=== PATIENT | female | born 1950 | race Caucasian/White ===

== ENCOUNTER 2018-08-01 08:04 | Day surgery (SDC) | payer MEDICARE, OTHER ==
[~2018-08-01] VITALS: Ht 160 cm; Wt 112.5 kg
[2018-08-01] MEDS ORDERED: PRINIVIL20 MG PO (08:21)
[2018-08-01] MEDS ORDERED: LASIX 20MG TABL20 MG PO (08:22)
[2018-08-01] MEDS ORDERED: K-DUR20 MEQ PO (08:22)
[2018-08-01] MEDS ORDERED: ELIQUIS 5MG PO (08:22)
[2018-08-01] MEDS ORDERED: LIPITOR 40MG TA40 MG PO (08:23)
[2018-08-01] MEDS ORDERED: LOPRESSOR 225 MG/TAB PO (08:23)
[2018-08-01 08:24] VITALS: BP 150/72; PULSE 86; TEMP 98.2
[2018-08-01] MEDS ORDERED: ZANTAC 150MG T150 MG PO (10:35)
[2018-08-01 10:50] VITALS: BP 137/77; PULSE 80; TEMP 98.7
[2018-08-01 11:05] VITALS: BP 137/69; PULSE 84
[2018-08-01 11:20] VITALS: BP 135/90; PULSE 87
== END 2018-08-01 11:30 | disposition home or self-care (01) ==
LOC: SDCO 08:04
DX: K29.30 Chronic superficial gastritis without bleeding (principal); K64.0 First degree hemorrhoids; K29.80 Duodenitis without bleeding; K92.1 Melena; D64.9 Anemia, unspecified; I48.91 Unspecified atrial fibrillation; I34.0 Nonrheumatic mitral (valve) insufficiency; F41.9 Anxiety disorder, unspecified; Z86.73 Personal history of transient ischemic attack (TIA), and cerebral infarction without residual deficits; Z79.01 Long term (current) use of anticoagulants; Z79.82 Long term (current) use of aspirin
CPT/HCPCS: J2704; J3010; J7030

== ENCOUNTER → 2018-09-19 | Outpatient (CLI) | payer MEDICARE, OTHER ==
[~2018-09-19] MED LIST: ELIQUIS 5MG PO; K-DUR20 MEQ PO; LASIX 20MG TABL20 MG PO; LIPITOR 40MG TA40 MG PO; LOPRESSOR 225 MG/TAB PO; PRINIVIL20 MG PO; ZANTAC 150MG T150 MG PO
== END ==
LOC: MC.RAD 10:40
DX: Z12.31 Encounter for screening mammogram for malignant neoplasm of breast (principal)

== ENCOUNTER 2019-05-17 17:25 | Inpatient (IN) | payer MEDICARE, OTHER ==
[~2019-05-17] VITALS: Ht 160 cm; Wt 104.4 kg
[2019-05-17 17:54] LABS: BASO % 0.4 % (0.0-2.0); EOS % 0.1 % (0-4.0); GRAN # 6.2 (1.4-6.5); GRAN % 80.7 % (42.2-75.2); LYMPH # 0.5 (1.2-3.4); LYMPH % 6.9 % (20.0-51.0); MEAN CELL VOLUME 92 fl (80.0-100.0); MEAN CORPUSCULAR HGB CONC 28 g/dl (33.0-37.0); MEAN PLATELET VOLUME 10.4 fl (7.4-10.4); MONO # 0.9 (0.1-0.6); MONO % 11.4 % (1.7-9.3); PLATELET COUNT 272 K/mm3 (130-400); RED BLOOD COUNT 1.61 M/mm3 (4.10-5.30); REDCELL DISTRIBUTION WIDTH-CV 18.3 % (11.5-14.5)
[2019-05-17 18:01] LABS: MEAN CORPUSCULAR HEMOGLOBIN 26 pg (27.0-31.0)
[2019-05-17 18:02] LABS: HEMATOCRIT 14.8 % (37.0-47.0); HEMOGLOBIN 4.2 g/dl (12.5-16.0)
[2019-05-17 18:18] LABS: PARTIAL THROMBOPLASTIN TIME 77.5 SECONDS (26.0-37.0)
[2019-05-17] MEDS ORDERED: NORVASC2.5 MG PO (18:20)
[2019-05-17] MEDS ORDERED: NEXIUM 40MG40 MG PO (18:21)
[2019-05-17] MEDS ORDERED: COUMADIN 3MG3 MG/TAB PO (18:22)
[2019-05-17 18:25] LABS: ALANINE AMINOTRANSFERASE 18 U/L (9-52); ALBUMIN 3.4 gm/dL (3.5-5.0); ALKALINE PHOSPHATASE 75 U/L (50-136); ANION GAP 13 mmol/L (7-16); AST,SGOT 32 U/L (15-37); BILIRUBIN,TOTAL 0.9 mg/dL (0.0-1.0); BLOOD UREA NITROGEN 56 mg/dL (7-17); CALCIUM 8.8 mg/dL (8.4-10.2); CARBON DIOXIDE 19 mmol/L (22-30); CHLORIDE 105 mmol/L (98-107); CREATININE, serum 1.88 (0.52-1.25); GLUCOSE 110 mg/dL (74-106); POTASSIUM 5.1 mmol/L (3.4-5.0); SODIUM 137 mmol/L (137-145); TOTAL PROTEIN 6.1 gm/dL (6.4-8.2)
[2019-05-17 18:34] LABS: C-REACTIVE PROTEIN 0.5 mg/dL (0.0-0.9); TROPONIN-I < 0.012 ng/mL (0.000-0.035)
[2019-05-17 18:36] LABS: INR 16.4 (0.8-3.0)
[2019-05-17 18:37] LABS: PROTHROMBIN TIME 209.4 SECONDS (9.7-12.8)
[2019-05-17 19:26] VITALS: BP 98/52; PULSE 77; TEMP 97.6
[2019-05-17 19:41] VITALS: BP 90/60; PULSE 82; TEMP 97.6
[2019-05-17 20:16] VITALS: BP 105/56; PULSE 79; TEMP 97.8
[2019-05-17 21:15] VITALS: BP 113/74; PULSE 73; TEMP 97.6
[2019-05-17 23:28] VITALS: BP 104/46; PULSE 82; TEMP 98.7
[2019-05-17 23:47] VITALS: BP 102/40; PULSE 73; TEMP 98.1
[2019-05-18] VITALS (25 sets, daily range): BP systolic 92–135; BP diastolic 43–96; PULSE 67–99; TEMP 97.5–98.7
[2019-05-18 00:54] LABS: COLLECTION METHOD CLEAN CATCH
[2019-05-18 01:03] LABS: HYALINE CAST >12 /lpf; MUCOUS Present /lpf; PH 5 (5-8); SQUAMOUS EPITHELIAL 0-2 /hpf; URINE APPEARANCE Clear; URINE BACTERIA Rare /hpf; URINE BILIRUBIN Negative (NEGATIVE); URINE BLOOD 1+ (NEGATIVE); URINE COLOR Straw; URINE GLUCOSE Negative (NEGATIVE); URINE KETONE Negative (NEGATIVE); URINE LEUKOCYTE ESTERASE Trace (NEGATIVE); URINE NITRATE Negative (NEGATIVE); URINE PROTEIN(semi-quant) Negative (NEGATIVE); URINE RBC 0-2 /hpf; URINE UROBILINOGEN Negative (NEGATIVE)
[2019-05-18 02:39] LABS: HEMATOCRIT 18.5 % (37.0-47.0)
[2019-05-18 02:41] LABS: HEMOGLOBIN 5.7 g/dl (12.5-16.0)
--- NOTE | 2019-05-18 07:30 | NUR ---
Report received from LEVY Charles.
--- NOTE | 2019-05-18 08:00 | NUR ---
Assessment completed. Pt up in chair. PRBC still transfusing through left FA PIV. Pt c/o bilat leg pain, unable to describe, nagging pain. Pt states leg pain is chronic. SBP 90-100s, HR Afib 70-80s on monitor. Discussed plan of care with pt r/t EGD/colonscopy for today and bowel prep. Pt verbalized understanding. Pt up to bedside commode with stand by assist. BM brown and watery. Pt back to chair. Call light in reach.
--- NOTE | 2019-05-18 08:50 | NUR ---
Paged Anesthesia and received call back. Notified of EGD and colonoscopy at [address] Howard and anesthesia is requested.
[2019-05-18 08:52] LABS: CALCIUM 8.5 mg/dL (8.4-10.2); CREATININE, serum 1.65 (0.52-1.25); POTASSIUM 4.8 mmol/L (3.4-5.0)
[2019-05-18 08:53] LABS: PARTIAL THROMBOPLASTIN TIME 39.9 SECONDS (26.0-37.0)
--- NOTE | 2019-05-18 09:10 | NUR ---
PRBC completed. Post vitals taken. Lab notified of CBC for 1000. Consent signed by pt for EGD and colonoscopy with DR Howard. Consent in chart.
[2019-05-18 10:20] LABS: BASO % 0.4 % (0.0-2.0); EOS # 0.1 (0.0-0.7); EOS % 1.5 % (0-4.0); GRAN # 5.3 (1.4-6.5); GRAN % 77.4 % (42.2-75.2); LYMPH # 0.7 (1.2-3.4); LYMPH % 10.8 % (20.0-51.0); MEAN CORPUSCULAR HGB CONC 32 g/dl (33.0-37.0); MEAN PLATELET VOLUME 10.2 fl (7.4-10.4); MONO # 0.7 (0.1-0.6); MONO % 9.6 % (1.7-9.3); PLATELET COUNT 174 K/mm3 (130-400); RED BLOOD COUNT 2.93 M/mm3 (4.10-5.30)
[2019-05-18 10:23] LABS: HEMATOCRIT 25.6 % (37.0-47.0); HEMOGLOBIN 8.2 g/dl (12.5-16.0); MEAN CELL VOLUME 87 fl (80.0-100.0); MEAN CORPUSCULAR HEMOGLOBIN 28 pg (27.0-31.0)
[2019-05-18 10:28] LABS: CALCIUM 8.5 mg/dL (8.4-10.2); CREATININE, serum 1.61 (0.52-1.25); POTASSIUM 4.7 mmol/L (3.4-5.0)
--- NOTE | 2019-05-18 11:00 | NUR ---
LEVY Grady in Endoscopy called to steel pickler pt. Pt's stools still brown/watery. Dr Howard updated and ordered fleet enema for pt.
--- NOTE | 2019-05-18 12:06 | NUR ---
First visit from the crop and soil technician. No needs right now.
--- NOTE | 2019-05-18 12:50 | NUR ---
Yenny RN in Endoscopy called and updated on pt status. Pt's stools yellow, watery. FFP transfusing at this time. SBP 90-100s. Plan to pharmacy picking tech pt around 1400.
--- NOTE | 2019-05-18 13:38 | NUR ---
SW attended clinical rounds to discuss discharge planning. Patient lives independently at home alone. Patient's son, Drake, and daughter in law, Mechelle, live close by. Patient's PCP is Geri Fox NP from the [facility] in [place] and she obtains prescriptions from the pharmacy at the [facility]. Patient does not use any DME or home health services and is independent with all ADLs. Patient does not have a DPOA-HC but would like to complete one. EJ and Nishi FLETCHER, witnessed patient signature for DPOA-HC. Patient designated her son and daughter in law. SW provided original and extra copies. SW also placed a copy in patient's chart. Patient plans to return home upon discharge. EJ will follow as needed.
--- NOTE | 2019-05-18 14:26 | NUR ---
LEVY Coon from endoscopy at bedside. Updated on pt status. Pt left unit for EGD/ colonoscopy via bed and on CRM.
--- NOTE | 2019-05-18 15:50 | NUR ---
Report received from Shaggy paper cone grader at 1534. Pt arrived to ICU bed 3 from EGD/colonoscopy. Pt resting in bed, easily arousable. Pt connected to CRM, SBP 90-100s. HR Afib 90s. VSS. Will monitor.
[2019-05-18 16:20] LABS: HEMATOCRIT 26.6 % (37.0-47.0); HEMOGLOBIN 8.5 g/dl (12.5-16.0)
--- NOTE | 2019-05-18 19:39 | NUR ---
report given to Alvin Puente.
[2019-05-18 20:03] LABS: HEMOGLOBIN 8.5 g/dl (12.5-16.0)
[2019-05-19] VITALS: BP 110/59; PULSE 86; TEMP 97.8
[2019-05-19 00:45] LABS: HEMATOCRIT 26.1 % (37.0-47.0); HEMOGLOBIN 8.2 g/dl (12.5-16.0)
[2019-05-19 03:57] LABS: BASO % 0.4 % (0.0-2.0); EOS # 0.1 (0.0-0.7); EOS % 1.4 % (0-4.0); GRAN # 6.7 (1.4-6.5); GRAN % 77.7 % (42.2-75.2); LYMPH # 0.7 (1.2-3.4); LYMPH % 8.1 % (20.0-51.0); MEAN CELL VOLUME 90 fl (80.0-100.0); MEAN CORPUSCULAR HGB CONC 31 g/dl (33.0-37.0); MEAN PLATELET VOLUME 9.7 fl (7.4-10.4); MONO % 11.9 % (1.7-9.3); PLATELET COUNT 169 K/mm3 (130-400); RED BLOOD COUNT 2.94 M/mm3 (4.10-5.30); REDCELL DISTRIBUTION WIDTH-CV 16.7 % (11.5-14.5)
[2019-05-19 04:02] LABS: HEMATOCRIT 26.3 % (37.0-47.0); HEMOGLOBIN 8.2 g/dl (12.5-16.0); MEAN CORPUSCULAR HEMOGLOBIN 28 pg (27.0-31.0)
[2019-05-19 04:06] LABS: INR 1.3 (0.8-3.0)
[2019-05-19 04:08] LABS: CALCIUM 8.6 mg/dL (8.4-10.2); CREATININE, serum 1.27 (0.52-1.25); POTASSIUM 4.8 mmol/L (3.4-5.0)
[2019-05-19 04:25] VITALS: BP 105/74; PULSE 85; TEMP 97.8
--- NOTE | 2019-05-19 07:53 | NUR ---
gave report to kate jefferson.
[2019-05-19 08:00] VITALS: BP 106/79; PULSE 87; TEMP 97.5
--- NOTE | 2019-05-19 08:00 | NUR ---
Shift assessment complete at this time. Plan of care reviewed at bedside with patient. Additional time taken to address any other needs or concerns. Vitals stable at this time. Pt denies pain or any other discomfort. Bed in low position, call light within reach. Will continue to monitor.
--- NOTE | 2019-05-19 11:19 | NUR ---
Family was present, patient was very tired so I only stayed for a minute.
[2019-05-19 12:00] VITALS: BP 95/67; PULSE 84; TEMP 98.1
--- NOTE | 2019-05-19 12:00 | NUR ---
Pt resting comfortably in chair. Vitals stable at this time. Denies pain or any other discomfort. Bed in low position, call light within reach. Will continue to monitor.
--- NOTE | 2019-05-19 16:00 | NUR ---
PT ADMITTED TO FLOOR AT THIS TIME
[2019-05-19 16:31] VITALS: BP 114/92; PULSE 75; TEMP 98.1
[2019-05-19 19:49] VITALS: BP 83/47; PULSE 55; TEMP 98
--- NOTE | 2019-05-19 20:12 | NUR ---
pt resting in chair, A+Ox4. reports she sleeps in chair. pt able to reposistion self in chair. no pain. 2-3+ edmea in bilat legs- legs elevated. iv flushes well, no tenderness, no swelling x2. left forarm iv is red, but not painful. tele on- shows afib. ex wheezing noted x4. pt reports soa but reports this is her bl lately. no needs at this tiem. call light in keenan
[2019-05-20] VITALS (7 sets, daily range): BP systolic 95–124; BP diastolic 50–87; PULSE 66–97; TEMP 97.6–98.4
--- NOTE | 2019-05-20 05:12 | NUR ---
pt had an unevenful night. slept in chair during night. reports soa. vss. no pain. tele on and reads afib-rate controlled. 2-3+ edema noted in bilateral legs. bilat pedal pulses and readial pulses felt. gait is stable- standby. no needs at this tiem. call light in reach
--- NOTE | 2019-05-20 06:45 | NUR ---
report given to kate benton
[2019-05-20 08:45] LABS: BASO % 0.3 % (0.0-2.0); EOS # 0.1 (0.0-0.7); EOS % 2.1 % (0-4.0); GRAN # 4.5 (1.4-6.5); GRAN % 72.4 % (42.2-75.2); LYMPH # 0.7 (1.2-3.4); LYMPH % 11.9 % (20.0-51.0); MEAN CELL VOLUME 93 fl (80.0-100.0); MEAN CORPUSCULAR HGB CONC 29 g/dl (33.0-37.0); MEAN PLATELET VOLUME 10.8 fl (7.4-10.4); MONO # 0.8 (0.1-0.6); PLATELET COUNT 172 K/mm3 (130-400); RED BLOOD COUNT 2.87 M/mm3 (4.10-5.30)
[2019-05-20 09:01] LABS: CALCIUM 8.9 mg/dL (8.4-10.2); CREATININE, serum 1.18 (0.52-1.25); POTASSIUM 4.3 mmol/L (3.4-5.0)
[2019-05-20 09:16] LABS: HEMATOCRIT 26.7 % (37.0-47.0); HEMOGLOBIN 7.8 g/dl (12.5-16.0); MEAN CORPUSCULAR HEMOGLOBIN 27 pg (27.0-31.0)
--- NOTE | 2019-05-20 09:30 | NUR ---
PT UP TO TAKE A SHOWER AT THIS TIME. PT WAS OFF O2 BRIEFLY, REAPPLIED O2 UPON FINISHING SHOWER, PT HAD AUDIBLE WHEEZING NOTED. THIS NURSE CALLED RT AND RT CAME UP TO SEE PATIENT AT THIS TIME. FAMILY TOLD RT THAT THE PT HAD ALOT OF INHAILERS THAT SHE USES AT HOME. NO PRN ORDERS NOTED. RT TOLD FAMILY THEY COULD BRING IN THE INHAILER FOR PT TO USE HERE.
[2019-05-20] MEDS ORDERED: RT SPIRIVA18 MCG IH (15:36)
--- NOTE | 2019-05-20 19:27 | NUR ---
PT WALKED IN MICHEL WITH PT THIS AFTERNOON, DID WELL. PT STATED THAT SHE HAD TO STOP AND TAKE SOME BREATHERS BUT OTHERWISE DID WELL. FAMILY HAS BEEN IN AND OUT TODAY TO VISIT PT. NO C/O PAIN THIS SHIFT. PT INHAILER RESTARTED THIS SHIFT FOR RT TO GIVE. NO OTHER ISSUES OR CONSERNS VOICED.
--- NOTE | 2019-05-20 20:00 | NUR ---
Shift assessment complete. Pt resting in bedside recliner, awake, a&o, cooperative c cares. Pt denies pain or any other c/o at this time. INT x2 patent. Tele in place. Pt denies needs. Call light in reach, will monitor.
[2019-05-21 03:13] VITALS: BP 118/56; PULSE 82; TEMP 97.4
[2019-05-21 06:09] LABS: BASO % 0.5 % (0.0-2.0); EOS # 0.2 (0.0-0.7); EOS % 3.5 % (0-4.0); GRAN # 4.6 (1.4-6.5); GRAN % 70.1 % (42.2-75.2); LYMPH # 0.7 (1.2-3.4); LYMPH % 11.2 % (20.0-51.0); MEAN CELL VOLUME 95 fl (80.0-100.0); MEAN CORPUSCULAR HGB CONC 29 g/dl (33.0-37.0); MEAN PLATELET VOLUME 10.1 fl (7.4-10.4); MONO # 0.9 (0.1-0.6); MONO % 14.2 % (1.7-9.3); PLATELET COUNT 163 K/mm3 (130-400); RED BLOOD COUNT 2.81 M/mm3 (4.10-5.30); REDCELL DISTRIBUTION WIDTH-CV 16.9 % (11.5-14.5)
[2019-05-21 06:10] LABS: HEMATOCRIT 26.7 % (37.0-47.0); HEMOGLOBIN 7.8 g/dl (12.5-16.0); MEAN CORPUSCULAR HEMOGLOBIN 28 pg (27.0-31.0)
[2019-05-21 06:21] LABS: ALBUMIN 3.2 gm/dL (3.5-5.0); BILIRUBIN,TOTAL 1.2 mg/dL (0.0-1.0); CALCIUM 8.8 mg/dL (8.4-10.2); CREATININE, serum 1.13 (0.52-1.25); MAGNESIUM 1.7 mg/dL (1.6-2.3); PHOSPHOROUS 3.3 mg/dL (2.5-4.5); POTASSIUM 4.7 mmol/L (3.4-5.0); TOTAL PROTEIN 5.9 gm/dL (6.4-8.2)
--- NOTE | 2019-05-21 07:15 | NUR ---
Report received from LEVY Daigle. pTin chair at side of bed resting with eyes closed, will continue to monitor.
[2019-05-21 08:07] VITALS: BP 113/69; PULSE 69; TEMP 98.1
--- NOTE | 2019-05-21 08:50 | NUR ---
Assessement charted. Pt feeling well, deneis needs, 02 sat was 100%, trying to titrate off 02. INTs to LW and L A/C. Pt waiting for breakfast. Denies pain. BLE +2 edema, discussed need to elevate legs when swollen. Pt anticipating discharge today. will contineu to monitor.
--- NOTE | 2019-05-21 09:30 | NUR ---
SW attended clinical rounds. Patient will discharge home today. SW presented IM. Patient signed and did not want a copy.
--- NOTE | 2019-05-21 10:57 | NUR ---
Initial visit; Patient thanked Station Engineer Main Line for looking in on her and offering Spiritual Care.
[2019-05-21 11:50] VITALS: BP 115/70; PULSE 91; TEMP 97.9
--- NOTE | 2019-05-21 12:52 | NUR ---
Went over discharge paperwork with the patient. Verified that all her belongings were with her. IVs removed tip in tact, patient tolerated well, bandaids applied, and nursing staff assisted the patient outside by wheelchair. No further needs expressed at this time.
== END 2019-05-21 12:50 | disposition home or self-care (01) | DRG 377 ==
LOC: COL.ER 17:25 → ICU 19:01 → MEDICAL 05-19 15:57
PROVIDERS: Emergency Medicine; Family Medicine; Internal Medicine Gastroenterology; Internal Medicine Pulmonary Disease; Nurse Practitioner Family; ADMIT Internal Medicine
PROC: 0DJ08ZZ Inspection of Upper Intestinal Tract, Via Natural or Artificial Opening Endoscopic (ICD-10-PCS; principal; 2019-05-18 13:00)
DX: K26.4 Chronic or unspecified duodenal ulcer with hemorrhage (principal); J96.01 Acute respiratory failure with hypoxia; D62 Acute posthemorrhagic anemia; I50.32 Chronic diastolic (congestive) heart failure; Z68.41 Body mass index [BMI] 40.0-44.9, adult; N17.9 Acute kidney failure, unspecified; K64.1 Second degree hemorrhoids; I10 Essential (primary) hypertension; I95.9 Hypotension, unspecified; E78.5 Hyperlipidemia, unspecified; I48.2 Chronic atrial fibrillation; E66.9 Obesity, unspecified; I27.20 Pulmonary hypertension, unspecified; I11.0 Hypertensive heart disease with heart failure; E87.5 Hyperkalemia; K21.9 Gastro-esophageal reflux disease without esophagitis; Z79.01 Long term (current) use of anticoagulants; Z86.73 Personal history of transient ischemic attack (TIA), and cerebral infarction without residual deficits; Z87.891 Personal history of nicotine dependence; Z95.2 Presence of prosthetic heart valve
CPT/HCPCS: 99222-AI; 99233-AI; 99239; C9113; J1940; J2704; J3430; J7030; P9016

== ENCOUNTER 2019-08-17 07:21 | Day surgery (SDC) | payer MEDICARE, OTHER ==
[2019-08-17] VITALS (10 sets, daily range): BP systolic 122–148; BP diastolic 53–76; PULSE 78–86; TEMP 98
[~2019-08-17] VITALS: Ht 160 cm; Wt 99.0 kg
[~2019-08-17 07:21] MED LIST changes: +COUMADIN 3MG3 MG/TAB PO; +NEXIUM 40MG40 MG PO; +NORVASC2.5 MG PO; +RT SPIRIVA18 MCG IH
[2019-08-17 08:16] LABS: INR 1.1 (0.8-3.0); PROTHROMBIN TIME 12.5 SECONDS (9.7-12.8)
[2019-08-17 08:18] LABS: MEAN CELL VOLUME 85 fl (80.0-100.0); MEAN CORPUSCULAR HGB CONC 29 g/dl (33.0-37.0); MEAN PLATELET VOLUME 9.8 fl (7.4-10.4); PLATELET COUNT 339 K/mm3 (130-400); RED BLOOD COUNT 3.49 M/mm3 (4.10-5.30); REDCELL DISTRIBUTION WIDTH-CV 17.7 % (11.5-14.5)
[2019-08-17] MEDS ORDERED: NORVASC2.5 MG PO (08:18)
[2019-08-17 08:19] LABS: HEMATOCRIT 29.5 % (37.0-47.0); HEMOGLOBIN 8.4 g/dl (12.5-16.0); MEAN CORPUSCULAR HEMOGLOBIN 24 pg (27.0-31.0)
[2019-08-17 08:20] LABS: CALCIUM 9.3 mg/dL (8.4-10.2); CREATININE, serum 1.23 (0.52-1.25); POTASSIUM 3.8 mmol/L (3.4-5.0)
[2019-08-17] MEDS ORDERED: PROAIR HFA0.09 MG/AC IH (08:30)
--- NOTE | 2019-08-17 09:38 | NUR ---
SEE MERGE REPORT FOR MEDICATION ADMINISTRATION WELL INTRA/POST SEDATION ASSESSMENTS.
[2019-08-17] MEDS ORDERED: LASIX 40MG TABL40 MG PO (10:31)
--- NOTE | 2019-08-17 10:40 | NUR ---
Pt returned to EU 11 per bed s/p heart cath. Pt resting well in bed, family at bedside.
--- NOTE | 2019-08-17 10:46 | NUR ---
Pt transported to express unit room 11 via stretcher. Right groin site stable. Dressing clean, dry and intact. Bedside report to Yeny LOCKETT. Pulses checked at bedside and remain unchange from pre procedure. RDP=Dop, RPT=+1. Pt denies pain or discomfort. Pt connected to bedside vital signs monitor as well as ECG. Post op instructions reviewed with patient and family who verbalized understanding. Dr. Cross in room to review results with patient and family.
--- NOTE | 2019-08-17 13:15 | NUR ---
Pt has ambulated, voided and dae PO intake s n/v. PIV removed with catheter intact.
--- NOTE | 2019-08-17 13:50 | NUR ---
Pt discharged per w/c by nurse with son.
== END 2019-08-17 13:57 | disposition home or self-care (01) ==
LOC: COL.CAR 07:21
PROVIDERS: Internal Medicine Cardiovascular Disease
DX: I25.10 Atherosclerotic heart disease of native coronary artery without angina pectoris (principal); E78.5 Hyperlipidemia, unspecified; E11.9 Type 2 diabetes mellitus without complications; E66.9 Obesity, unspecified; I05.2 Rheumatic mitral stenosis with insufficiency; I11.0 Hypertensive heart disease with heart failure; I50.22 Chronic systolic (congestive) heart failure; I27.20 Pulmonary hypertension, unspecified
CPT/HCPCS: J1644; J2250; J3010; Q9967

== ENCOUNTER 2020-10-17 07:59 | Outpatient (CLI) | payer MEDICARE ==
[~2020-10-17] VITALS: Ht 160.1 cm; Wt 105.0 kg
[~2020-10-17 07:59] MED LIST changes: +LASIX 40MG TABL40 MG PO; +PROAIR HFA0.09 MG/AC IH
[2020-10-17 08:29] VITALS: BP 133/73; PULSE 90; TEMP 98.5
[2020-10-17] MEDS ORDERED: ALDACTONE 25MG25 M1 PO (08:42)
[2020-10-17] MEDS ORDERED: FERROUS SU325 MG/TAB PO (08:58)
[2020-10-17 09:00] LABS: HEMATOCRIT 39.2 % (37.0-47.0); HEMOGLOBIN 12.7 g/dl (12.5-16.0); MEAN CELL VOLUME 94 fl (80.0-100.0); MEAN CORPUSCULAR HEMOGLOBIN 30 pg (27.0-31.0); MEAN CORPUSCULAR HGB CONC 32 g/dl (33.0-37.0); MEAN PLATELET VOLUME 10.1 fl (7.4-10.4); PLATELET COUNT 222 K/mm3 (130-400); RED BLOOD COUNT 4.18 M/mm3 (4.10-5.30); REDCELL DISTRIBUTION WIDTH-CV 13.8 % (11.5-14.5)
[2020-10-17 09:09] LABS: INR 1.1 (0.8-3.0); PROTHROMBIN TIME 11.9 SECONDS (9.7-12.8)
[2020-10-17 09:13] LABS: CALCIUM 9.6 mg/dL (8.4-10.2); CREATININE, serum 1.28 (0.52-1.25); POTASSIUM 4.2 mmol/L (3.4-5.0)
[2020-10-17 11:45] VITALS: BP 117/60; PULSE 75
--- NOTE | 2020-10-17 11:45 | NUR ---
RECIEVED REPORT FROM NAYELI LOCKETT, PT IS AWAKE AND ALERT, SITS UP IN BED, BEEN UP TO B/R X1 TO VOID. TAKES POP AND PUDDING. NO C/O
[2020-10-17 12:00] VITALS: BP 114/78; PULSE 71
[2020-10-17 12:15] VITALS: BP 120/70; PULSE 70
--- NOTE | 2020-10-17 12:15 | NUR ---
DR LUND INTO SEE PT AND TALK ABOUT RESULTS. PT WILL MAKE 2 WEEK FOLLOWUP AT OFFICE ON TUESDAY, INFORMATION GIVEN. IV D'CD INTACT. PT UP AND DRESSED, REVIEWED DISCHARGE INST. WITH PT ON MODERATE SEDATION AND PRECAUTIONS WITH VERBAL UNDERSTANDING. PT DISCHARGED VIA W/C TO CAR WITH SON AT 6204
== END 2020-10-17 12:35 | disposition home or self-care (01) ==
LOC: COL.RAD 07:59
PROVIDERS: Internal Medicine Cardiovascular Disease
DX: I50.30 Unspecified diastolic (congestive) heart failure (principal); I35.0 Nonrheumatic aortic (valve) stenosis; I44.4 Left anterior fascicular block; I45.10 Unspecified right bundle-branch block
CPT/HCPCS: J2704

== ENCOUNTER → 2021-08-04 | Outpatient (CLI) | payer MEDICARE ==
[~2021-08-04] MED LIST changes: +ALDACTONE 25MG25 M1 PO; +FERROUS SU325 MG/TAB PO
== END ==
LOC: COL.RAD 13:01
DX: Z12.2 Encounter for screening for malignant neoplasm of respiratory organs (principal); Z87.891 Personal history of nicotine dependence

== ENCOUNTER 2023-01-21 18:13 | Inpatient (IN) | payer MEDICARE ==
[2023-01-21] VITALS (82 sets, daily range): BP systolic 90–101; BP diastolic 51–89; O2SAT 87–100
[~2023-01-21] VITALS: Ht 160 cm; Wt 95.9 kg
[2023-01-21 19:11] LABS: MEAN CELL VOLUME 87 fl (80.0-100.0); MEAN CORPUSCULAR HGB CONC 33 g/dl (33.0-37.0); MEAN PLATELET VOLUME 11.6 fl (7.4-10.4); PLATELET COUNT 179 K/mm3 (130-400); RED BLOOD COUNT 3.11 M/mm3 (4.10-5.30); REDCELL DISTRIBUTION WIDTH-CV 15.7 % (11.5-14.5)
[2023-01-21 19:15] LABS: HEMATOCRIT 27.1 % (37.0-47.0); MEAN CORPUSCULAR HEMOGLOBIN 29 pg (27-31)
[2023-01-21 19:17] LABS: INR 1.4 (0.8-3.0); PROTHROMBIN TIME 15.8 SECONDS (9.7-12.8)
[2023-01-21 19:23] LABS: ALBUMIN 2.6 gm/dL (3.4-4.8); BILIRUBIN,TOTAL 6.9 mg/dL (0.2-1.2); CALCIUM 8.5 mg/dL (8.4-10.2); CREATININE, serum 2.88 mg/dL (0.57-1.11); POTASSIUM 4.8 mmol/L (3.5-4.5); TOTAL PROTEIN 6.6 gm/dL (6.2-8.1)
[2023-01-21 19:30] LABS: TROPONIN-I 0.035 ng/mL (0.00-0.033)
[2023-01-21 20:00] LABS: BAND 8 % (0-10); NEUTROPHILS 90 % (42.0-75.2); PLATELET ESTIMATE NORMAL (NORMAL)
[2023-01-21 20:02] LABS: BURR CELLS 2+
[2023-01-21 20:03] LABS: OVALOCYTES 1+
--- NOTE | 2023-01-21 22:20 | NUR ---
Patient arrived to the unit from the emergency department. Patient arrived on Levophed at 0.16mcg/kg/min and NS at 500ml/hr. Patient had noticeable edema on bilateral lower extremities. Patient has multiple wounds on lower extremities (view ranjeet assessment for measurements and descriptions) that are weeping and producing odor. Patient asked this RN to use the bedpan shortly after arrival, patient had a small, liquid bowel movement. Stool sample was collected and sent down to lab for a hemoccult and GI panel. Upon this RN's assessment patient had excoriation and multiple small sloughing wounds on the coccyx region. Patient has a large skin fold that appeared reddened, irritated, and moist. A barrier skin moisture cloth was placed to prevent further irritation. ERAN Cuevas consulted for irving placement, rectal tube placement, and possible central line placement. ERAN Cuevas agreed that a irving catheter and rectal tube were appropriate due to amyt's skin irritation and open wounds. ERAN Cuevas recommended using the patients peripheral line for the night and reassess need for a central line in the morning. Irving catheter and rectal tube placed with patient's permission, patient tolerated well. Patient is resting comfortably in bed with call light in reach.
[2023-01-22] VITALS (1227 sets, daily range): BP systolic 75–109; BP diastolic 32–84; PULSE 57–84; TEMP 93–98.1; O2SAT 85–100
[2023-01-22 05:44] LABS: MEAN CELL VOLUME 85 fl (80.0-100.0); MEAN CORPUSCULAR HGB CONC 34 g/dl (33.0-37.0); MEAN PLATELET VOLUME 11.5 fl (7.4-10.4); PLATELET COUNT 151 K/mm3 (130-400); RED BLOOD COUNT 2.82 M/mm3 (4.10-5.30); REDCELL DISTRIBUTION WIDTH-CV 15.8 % (11.5-14.5)
[2023-01-22 05:55] LABS: ALBUMIN 2.3 gm/dL (3.4-4.8); BILIRUBIN,TOTAL 6.1 mg/dL (0.2-1.2); CALCIUM 7.6 mg/dL (8.4-10.2); CREATININE, serum 2.58 mg/dL (0.57-1.11); MAGNESIUM 2.4 mg/dL (1.6-2.6); POTASSIUM 4.5 mmol/L (3.5-4.5); TOTAL PROTEIN 5.7 gm/dL (6.2-8.1)
[2023-01-22 05:57] LABS: HEMOGLOBIN 8.2 g/dl (12.5-16.0); MEAN CORPUSCULAR HEMOGLOBIN 29 pg (27-31)
[2023-01-22 06:58] LABS: BAND 16 % (0-10); LYMPHOCYTE 1 % (20.0-51.0); NEUTROPHILS 81 % (42.0-75.2); PLATELET ESTIMATE NORMAL (NORMAL)
[2023-01-22 06:59] LABS: ANISOCYTOSIS 1+; BURR CELLS 2+; HYPOCHROMIA 1+
--- NOTE | 2023-01-22 08:15 | NUR ---
Patient is drowsy, but alert and able to answer orientation questions and follow simple commands. Skin assessed; Bilateral legs swollen and bruised with weeping open blister laterally along the left leg and anteriorly along the right leg. Left lateral leg also has black and yellow eschar tissue present in lower portion of the wound bed. Upper portion of the wound has a red bloody wound bed. Assisted with repositioning and legs elevated on pillows for comfort. Call light left within reach.
--- NOTE | 2023-01-22 11:30 | NUR ---
Dr. dorantes notified about patient's hypothermia. Sandeep on a eric hugger. Will continue to monitor for increase in body temperature.
--- NOTE | 2023-01-22 11:36 | NUR ---
Chaplalin rounds: Patient was resting in bed. Prosthodontist/Owner visit offered and declined. Patient stated Prosthodontist/Owner could possibly visit later.
--- NOTE | 2023-01-22 12:21 | NUR ---
Arson And Bomb Investigator met with PAtient at bedside to conduct Care Managment Assessment and discuss discharge planning. PAtient reported that she lives in [place], [place] by herself and is established with PCP MICHELLE Lozano. PAtient preferres perscription services through [employer] abd has insurance coverage through [facility] [employer]. EJ spoke with PAtient Son, Neil P: [phone] and his Mechelle, both listed as DPOA in chart. Neil reported that PAtient did not use O2 or DME prior to admission and utilized the use of a walker prior to admission. Neil stated that Patient was independent with her ADLs/IADLs until the past 7 days when she declined, resulting in her admission. Discharge Plan: TBD
[2023-01-22 14:15] LABS: COLLECTION METHOD CATHETER
[2023-01-22 14:30] LABS: AMORPHOUS CRYSTAL Present (NOT PRESENT); GRANULAR CAST >12 /lpf (0); MUCOUS Present (NOT PRESENT); SQUAMOUS EPITHELIAL 0-2 /hpf (0-10); URINE BACTERIA Moderate /hpf (NONE SEEN); URINE CALCIUM OXALATE CRYSTAL Present (NOT PRESENT)
[2023-01-22 14:31] LABS: URINE APPEARANCE Cloudy (CLEAR/HAZY); URINE COLOR Yellow (YELLOW); URINE GLUCOSE Negative (NEGATIVE); URINE KETONE Negative (NEGATIVE); URINE PROTEIN(semi-quant) 2+ (NEGATIVE)
[2023-01-22 14:32] LABS: URINE BLOOD 1+ (NEGATIVE); URINE NITRATE Negative (NEGATIVE)
[2023-01-22 18:52] LABS: SODIUM 130 mmol/L (136-145)
--- NOTE | 2023-01-22 20:00 | NUR ---
PT'S TEMP UP TO 98.1 AXILARY. BAIRHUGGER REMOVED AT THIS TIME. WILL CONTINUE TO MONITOR. PT WITH EYES OPEN, ABLE TO SAY NAME. WIGGLES FINGERS WHEN ASKED BUT HAS NO STRENGTH TO SYSTEM CONTROLLER HANDS. PT ANSWERS YES/NO QUESTIONS WITH WEAK SPEECH, BUT OTHERWISE NOT COMMUNICATING/FULLY ANSWERING ORIENTATION QUESTIONS. GENERALLY SEEMS TO BE RESTING COMFORTABLY IN BED. REPOSITIONED TO OPPOSITE SIDE AT THIS TIME. BLE ELEVATED ON PILLOWS AND HEEL PROTECTORS IN PLACE. LARGE BLISTERS/WOUNDS TO BLE. WILL CONTINUE TO MONITOR.
[2023-01-23] VITALS (1124 sets, daily range): BP systolic 92–102; BP diastolic 44–58; PULSE 72–84; TEMP 94.6–97.7; O2SAT 83–100
[2023-01-23 05:24] LABS: MEAN CELL VOLUME 87 fl (80.0-100.0); MEAN CORPUSCULAR HGB CONC 33 g/dl (33.0-37.0); MEAN PLATELET VOLUME 11.8 fl (7.4-10.4); PLATELET COUNT 155 K/mm3 (130-400); RED BLOOD COUNT 2.89 M/mm3 (4.10-5.30); REDCELL DISTRIBUTION WIDTH-CV 16.2 % (11.5-14.5)
[2023-01-23 05:27] LABS: HEMOGLOBIN 8.3 g/dl (12.5-16.0); MEAN CORPUSCULAR HEMOGLOBIN 29 pg (27-31)
[2023-01-23 05:42] LABS: CALCIUM 7.7 mg/dL (8.4-10.2); CREATININE, serum 2.7 mg/dL (0.57-1.11); POTASSIUM 4.6 mmol/L (3.5-4.5)
[2023-01-23 06:06] LABS: ANISOCYTOSIS 1+; BAND 12 % (0-10); HYPOCHROMIA 1+; LYMPHOCYTE 4 % (20.0-51.0); NEUTROPHILS 82 % (42.0-75.2); PLATELET ESTIMATE NORMAL (NORMAL)
[2023-01-23 06:07] LABS: BURR CELLS 1+
--- NOTE | 2023-01-23 10:21 | NUR ---
Project Inspector rounds: Attempted follow-up visit from yesterday. Although Patient's eyes are open, Patient was unresponsive. No dental appliance mechanic visit conducted. Project Inspector prayed silently for Patient.
--- NOTE | 2023-01-23 11:59 | NUR ---
Follow-up Chemical Engineering Professor visit: Patient's son Neil is visiting today. Appreciates prayers for his Mother.
--- NOTE | 2023-01-23 16:35 | NUR ---
PT HAS BECOME HYPOTHERMIC. BEAR HUGGER APPLIED. PT TEMPERATURE SLOWING RISING.
--- NOTE | 2023-01-23 20:05 | NUR ---
Patient assessment completed. Patient is alert and was able to mumble where she was. Patient continues to moan/groan. Patient is able to follow simple commands i.e - squeezing RN's hand and wiggling toes. Patient's bilateral lower extremities assessed. This RN noticed significant changes from admission assessment to current. Left Lower Extremity- Foot appears reddened, skin is tight, patient moans and grimaces to light palpitation. Extremity is weeping a significant amount of yellow, serous fluid. Tissue that was previously red/beefy is now thick,yellow, sloughing. New areas of wound have opened and appear dark, brownish/black necrotic tissue. Right Lower Extremity- Wounds previously not open are now open dry, dark red. New blister formed on the right foot, tight skin, and edematous. ERAN Cuevas notified about RN's assessment. ERAN Cuevas arrived to the unit to assess patient. Faith agreed the extremity has rapidly deteriorated. Provider and RN noticed that the surgical consult was not notified, ERAN Cuevas recommended to call consult in the morning. Patient given morphine for pain management and remains on levophed and fluids.
[2023-01-24] VITALS (1160 sets, daily range): BP systolic 84–115; BP diastolic 41–58; PULSE 77–87; TEMP 96.8–97.9; O2SAT 72–100
--- NOTE | 2023-01-24 04:40 | NUR ---
Patient began requiring increased blood pressure support and mentation further declining. Patient is now requiring oxygen support and began having labored breathing. ERAN Cuevas consulted due to change in patients status. ERAN Cuevas consulted [facility] for a second opinion. New orders for an ABG. Upon waiting for results of ABG, patient began increased work of breathing to where ERAN Cuevas decided intubation was the best option for patient. from ED was consulted to perform the intubation. 0507- This RN IV pushed Etomidate and Succinylcholine. 0508- Patient successfully intubated. Patient placed on suction and tolerated procedure well. Patient remains on levophed and is currently stable.
[2023-01-24 04:58] LABS: ARTERIAL BLD GAS O2 SATURATION 90.9 % (92-100); ARTERIAL BLD GAS TCO2 CT 18.3; ARTERIAL BLOOD GAS BASE EXCESS -8.2 (-2-2); ARTERIAL BLOOD GAS HCO3 17.2 meq/L (22-26); ARTERIAL BLOOD GAS PCO2 34.7 mmHg (35-45); ARTERIAL BLOOD GAS PO2 67.7 mmHg (80-100); ARTERIAL BLOOD GAS pH 7.31 (7.35-7.45)
--- NOTE | 2023-01-24 08:52 | NUR ---
RECEIVED REPORT FROM NIGHTSHIFT RNPEDRO. VENTILATOR SETTING, ET/OG TUBE PLACEMENT, AND IV DRIPS VERIFIED AT BEDSIDE.
[2023-01-24 09:10] LABS: MEAN CELL VOLUME 85 fl (80.0-100.0); MEAN CORPUSCULAR HGB CONC 33 g/dl (33.0-37.0); MEAN PLATELET VOLUME 12.4 fl (7.4-10.4); PLATELET COUNT 107 K/mm3 (130-400); RED BLOOD COUNT 2.95 M/mm3 (4.10-5.30); REDCELL DISTRIBUTION WIDTH-CV 16.4 % (11.5-14.5)
[2023-01-24 09:13] LABS: HEMATOCRIT 25.2 % (37.0-47.0); HEMOGLOBIN 8.3 g/dl (12.5-16.0); MEAN CORPUSCULAR HEMOGLOBIN 28 pg (27-31)
[2023-01-24 09:21] LABS: CREATININE, serum 2.63 mg/dL (0.57-1.11); MAGNESIUM 2.3 mg/dL (1.6-2.6); POTASSIUM 4.7 mmol/L (3.5-4.5)
[2023-01-24 09:41] LABS: ANISOCYTOSIS 1+; BAND 1 % (0-10); BURR CELLS 3+; LYMPHOCYTE 1 % (20.0-51.0); NEUTROPHILS 97 % (42.0-75.2); NUCLEATED RED BLOOD CELL 4 (0-6); PLATELET ESTIMATE DECREASED (NORMAL)
[2023-01-24 09:42] LABS: HYPOCHROMIA 1+; OVALOCYTES 1+
[2023-01-24 09:44] LABS: ARTERIAL BLD GAS O2 SATURATION 99.9 % (92-100); ARTERIAL BLD GAS TCO2 CT 17.5; ARTERIAL BLOOD GAS BASE EXCESS -8.8 (-2-2); ARTERIAL BLOOD GAS HCO3 16.5 meq/L (22-26); ARTERIAL BLOOD GAS PCO2 32.9 mmHg (35-45); ARTERIAL BLOOD GAS pH 7.32 (7.35-7.45)
[2023-01-24 09:47] LABS: ARTERIAL BLOOD GAS PO2 374.6 mmHg (80-100)
--- NOTE | 2023-01-24 10:01 | NUR ---
HEAD TO TOE ASSESSMENT COMPLETE. PARKS, RECTAL TUBE, IV SITES, AND IV DRIPS VERIFIED. PATIENT OPENS EYES AND MOVES FEET DURING BLE ASSESSMENT. PUPILS ARE FIXED AND NON-REACTIVE. PEDAL PULSES ARE ASSESSED VIA DOPPLER, RADIAL PULSES FELT BUT WEAK. BOWEL SOUNDS ARE HYPOACTIVE. LUNGS ARE CLEAR BUT DIMINISHED AT BASES. HEART SOUND IS IRREGULAR WITH A MURMUR NOTED. SON IS PRESENT AT BEDSIDE WITH PATIENT THIS MORNING. CALL LIGHT WITHIN REACH. WILL CONTINUE TO MONITOR.
--- NOTE | 2023-01-24 10:25 | NUR ---
CALL TO ORTHOPEDICS SUSPENDER MAKER PROVIDER, PETER. PETER ADVISED TO CALL DR. DE LEON D/T CONSULT BEING PUT IN BEFORE 8AM. CALL TO DR. DE LEON AT 1024 WITH NO ANSWER. MESSAGE LEFT ON VOICEMAIL.
--- NOTE | 2023-01-24 12:05 | NUR ---
HEAD TO TOE ASSESSMENT COMPLETED. IV SITES, ET/OG TUBE PLACEMENT, VENTILATOR SETTINGS, AND FLUIDS VERIFIED. CHUCKS REPLACED UNDER BILATERAL LEGS. PATIENT REPOSITIONED AND ORAL CARE COMPLETED. PATIENT WITHDRAWS FROM PAIN WHEN ASSESSING BILATERAL LOWER EXTREMITIES. PATIENT OPENS EYES WHEN CARES ARE PROVIDED. CALL LIGHT WITHIN REACH. WILL CONTINUE TO MONITOR.
--- NOTE | 2023-01-24 16:15 | NUR ---
Patient scheduled telehealth visit with Dr. Murphy, Infectious Disease. Pt consents to visit. Equipment set up, audio and video connections established. Visit conducted by MD. No technical concerns or issues. PT intubated unable to answer questions. RN in room answers questions.
--- NOTE | 2023-01-24 16:52 | NUR ---
HEAD TO TOE ASSESSMENT COMPLETED. NEW ORDERS, MEDICATIONS, AND LABS REVIEWED AND ACKNOWLEDGED. IV DRIPS, PARKS, OG/ET TUBE PLACEMENT, AND VENTILATOR SETTINGS VERIFIED. PATIENT IS NOT FIGHTING VENTILATOR AND APPEARS TO BE RESTING COMFORTABLY. PATIENT REPOSITIONED AND NEW ANDREA PADS APPLIED UNDER BILATERAL EXTREMITIES. HEEL PROTECTORS IN PLACE FOR SUPPORT. CALL LIGHT WITHIN REACH. WILL CONTINUE TO MONITOR.
--- NOTE | 2023-01-24 16:55 | NUR ---
SEDATION VACATION NOT COMPLETED D/T PATIENT BEING RESTLESS WHILE OFF SEDATION.
[2023-01-24 20:42] LABS: ARTERIAL BLOOD GAS BASE EXCESS -6.9 (-2-2); ARTERIAL BLOOD GAS HCO3 17.7 meq/L (22-26); ARTERIAL BLOOD GAS PO2 130.5 mmHg (80-100); ARTERIAL BLOOD GAS pH 7.36 (7.35-7.45)
[2023-01-24 20:43] LABS: ARTERIAL BLD GAS O2 SATURATION 98.7 % (92-100)
[2023-01-25] VITALS (1343 sets, daily range): BP systolic 82–113; BP diastolic 42–54; PULSE 70–91; TEMP 96.5–99.3; O2SAT 83–100
[2023-01-25 04:46] LABS: ARTERIAL BLD GAS O2 SATURATION 97.6 % (92-100); ARTERIAL BLD GAS TCO2 CT 17.4; ARTERIAL BLOOD GAS BASE EXCESS -7.7 (-2-2); ARTERIAL BLOOD GAS HCO3 16.6 meq/L (22-26); ARTERIAL BLOOD GAS PCO2 28.9 mmHg (35-45); ARTERIAL BLOOD GAS pH 7.38 (7.35-7.45)
[2023-01-25 05:01] LABS: MEAN CELL VOLUME 84 fl (80.0-100.0); MEAN CORPUSCULAR HGB CONC 34 g/dl (33.0-37.0); MEAN PLATELET VOLUME 11.9 fl (7.4-10.4); PLATELET COUNT 107 K/mm3 (130-400); RED BLOOD COUNT 2.67 M/mm3 (4.10-5.30); REDCELL DISTRIBUTION WIDTH-CV 16.5 % (11.5-14.5)
[2023-01-25 05:03] LABS: HEMATOCRIT 22.4 % (37.0-47.0); HEMOGLOBIN 7.7 g/dl (12.5-16.0); MEAN CORPUSCULAR HEMOGLOBIN 29 pg (27-31)
[2023-01-25 05:14] LABS: ALBUMIN 2.1 gm/dL (3.4-4.8); BILIRUBIN,TOTAL 4.4 mg/dL (0.2-1.2); CALCIUM 8.2 mg/dL (8.4-10.2); CREATININE, serum 2.52 mg/dL (0.57-1.11); MAGNESIUM 2.3 mg/dL (1.6-2.6); POTASSIUM 4.2 mmol/L (3.5-4.5); TOTAL PROTEIN 5.8 gm/dL (6.2-8.1)
[2023-01-25 05:25] LABS: INR 1.3 (0.8-3.0); PROTHROMBIN TIME 14.7 SECONDS (9.7-12.8)
[2023-01-25 05:26] LABS: BAND 2 % (0-10); LYMPHOCYTE 9 % (20.0-51.0); METAMYELOCYTE 2 % (0-0); NEUTROPHILS 85 % (42.0-75.2)
[2023-01-25 05:27] LABS: ANISOCYTOSIS 1+; PLATELET ESTIMATE DECREASED (NORMAL)
[2023-01-25 05:28] LABS: OVALOCYTES 1+
[2023-01-25 05:29] LABS: BILIRUBIN,DIRECT 3.4 mg/dL (0.0-0.5); BURR CELLS 1+
--- NOTE | 2023-01-25 05:40 | NUR ---
Sedation vacation not attempted at this time. Patient responds to pain and opens eyes but will not follow commands. When sedation is decreased patient begins to fight the ventilator
--- NOTE | 2023-01-25 07:51 | NUR ---
Received report from LEVY Hernandez; patient remains on ventilator with prop and fent running for sedation through her right IJ central line. Patient has OG tube in place set to LIS; a Rothman catheter and rectal tube are in place. Patient remains on warmed fluids and is requiring intermittent use of warmer to maintain temperature. Patient also remains on levophed and pressures are still soft; will titrate per set parameters.
--- NOTE | 2023-01-25 10:00 | NUR ---
Family meeting held this morning with patients son Neil and daughter Phylicia. Also in attendance is the special education teachers, hospitalist, ICU home management supervisor Shari and devon PAGAN. Patients condition discussed at length with the patients family. Carbon Blocks Press Operator discusses that the patient will be on the ventilator for many days and it is unknown at this time if she will be able to be weaned off of it. Family provided education on what his care would look like with agressive measures. Per Neil, their other sister Ann is on her way down from [place]. Family would like to talk to discuss poc.
--- NOTE | 2023-01-25 10:49 | NUR ---
Levophed titrated outside set parameters per Dr. Filemon Kelly
--- NOTE | 2023-01-25 16:00 | NUR ---
Telehealth visit conducted with Dr. Sylvester Murphy, Infectious Disease. Patient intubated and on ventilator. Patients nurse present to help answer questions Telecommunication initiated without any difficulties during exam. All questions were answered by Dr. Murphy
--- NOTE | 2023-01-25 18:31 | NUR ---
Sedation vacation not done today as patient is on minimal sedation and is responsive; however, patient is not following commands.
--- NOTE | 2023-01-25 20:00 | NUR ---
Patient assessment completed. Patient is able to open her eyes to loud speech and or painful stimulus. Patient followed the command to squeeze RNs hand, but was unable to follow others. Pupils are reactive and equal but are sluggish. Leg wounds are weeping a significant amount and cause patient pain. Patient repositioned with day shift RN. Patient is currently on vasopressor support.
[2023-01-26] VITALS (1145 sets, daily range): BP systolic 90–104; BP diastolic 44–52; PULSE 68–81; TEMP 97.9–99; O2SAT 89–100
[2023-01-26 04:40] LABS: ARTERIAL BLD GAS O2 SATURATION 97.6 % (92-100); ARTERIAL BLD GAS TCO2 CT 17.4; ARTERIAL BLOOD GAS BASE EXCESS -7.4 (-2-2); ARTERIAL BLOOD GAS HCO3 16.5 meq/L (22-26); ARTERIAL BLOOD GAS PCO2 27.6 mmHg (35-45); ARTERIAL BLOOD GAS PO2 104.4 mmHg (80-100)
[2023-01-26 05:09] LABS: MEAN CELL VOLUME 84 fl (80.0-100.0); MEAN CORPUSCULAR HGB CONC 34 g/dl (33.0-37.0); MEAN PLATELET VOLUME 12.4 fl (7.4-10.4); PLATELET COUNT 91 K/mm3 (130-400); RED BLOOD COUNT 2.55 M/mm3 (4.10-5.30); REDCELL DISTRIBUTION WIDTH-CV 16.7 % (11.5-14.5)
[2023-01-26 05:10] LABS: HEMATOCRIT 21.5 % (37.0-47.0); HEMOGLOBIN 7.3 g/dl (12.5-16.0); MEAN CORPUSCULAR HEMOGLOBIN 29 pg (27-31)
--- NOTE | 2023-01-26 05:11 | NUR ---
Patient reacts to pain. Sedation titrated down in attempts to see if blood pressures increase and to see if patient becomes alert.
[2023-01-26 05:19] LABS: CALCIUM 7.9 mg/dL (8.4-10.2); CREATININE, serum 2.16 mg/dL (0.57-1.11); MAGNESIUM 2.2 mg/dL (1.6-2.6); POTASSIUM 4.3 mmol/L (3.5-4.5)
[2023-01-26 05:39] LABS: ANISOCYTOSIS 1+; BAND 3 % (0-10); EOSINOPHIL 1 % (0-4); LYMPHOCYTE 9 % (20.0-51.0); METAMYELOCYTE 1 % (0-0); NEUTROPHILS 78 % (42.0-75.2); PLATELET ESTIMATE DECREASED (NORMAL)
[2023-01-26 05:40] LABS: BURR CELLS 1+; OVALOCYTES 1+
--- NOTE | 2023-01-26 12:30 | NUR ---
Patient opens eyes to speech; able to squeeze nurses hands and wiggle toes on command. However, returns to sleep quickly when there is no constant verbal or physical stimuli. Will continue to monitor.
--- NOTE | 2023-01-26 14:56 | NUR ---
Family meeting scheduled for 01/27 at 0900.
--- NOTE | 2023-01-26 17:00 | NUR ---
Patient scheduled telehealth visit with Dr. Murphy, Infectious Disease. Pt unable to give verbal consents to visit. Pt is intubated and on ventilator. PTs nurse present in room to answer questions. Equipment set up, audio and video connections established. Visit conducted by . No technical concerns or issues.
[2023-01-27] VITALS (1090 sets, daily range): BP systolic 90–113; BP diastolic 40–55; PULSE 74–90; TEMP 97.8–99.9; O2SAT 83–100
--- NOTE | 2023-01-27 | NUR ---
PT REPOSITIONED AND BACK CLEANED, LINENS CHANGED. RECTAL TUBE REMOVED AT THIS TIME PT HAS HAD VERY LITTLE OUTPUT. RECTAL TEMP PROBE ALSO REMOVED, READING HAS NOT BEEN ACCURATE AND AXILLARY TEMP REGISTERING WITHIN NORMAL RANGE. PT WITH FULL BODY EDEMA, TEMP PROBE HAD MADE INDENTION. WHEN REMOVED, SMALL AREA IS OPEN AND BLEEDING. ALSO WITH RECTAL TUBE REMOVAL AND PERIANAL CLEANING, SOME MACERATED SKIN SLOUGHED OFF ABOVE COCCYX AND TINY OPEN AREAS WITH SOME BLEEDING NOTED. AT THIS TIME, WILL LEAVE BOTH OPEN. NEW PADS PLACED UNDER PT AND WILL CONTINUE TO MONITOR.
[2023-01-27 04:51] LABS: MEAN CELL VOLUME 88 fl (80.0-100.0); MEAN CORPUSCULAR HGB CONC 33 g/dl (33.0-37.0); MEAN PLATELET VOLUME 11.4 fl (7.4-10.4); PLATELET COUNT 81 K/mm3 (130-400); RED BLOOD COUNT 2.44 M/mm3 (4.10-5.30); REDCELL DISTRIBUTION WIDTH-CV 16.8 % (11.5-14.5)
[2023-01-27 04:57] LABS: ARTERIAL BLD GAS O2 SATURATION 98.1 % (92-100); ARTERIAL BLD GAS TCO2 CT 19.2; ARTERIAL BLOOD GAS BASE EXCESS -5.1 (-2-2); ARTERIAL BLOOD GAS HCO3 18.4 meq/L (22-26); ARTERIAL BLOOD GAS PO2 108.4 mmHg (80-100); ARTERIAL BLOOD GAS pH 7.44 (7.35-7.45)
[2023-01-27 05:11] LABS: MAGNESIUM 2.2 mg/dL (1.6-2.6)
[2023-01-27 05:13] LABS: BILIRUBIN,DIRECT 2.5 mg/dL (0.0-0.5); BILIRUBIN,TOTAL 3.5 mg/dL (0.2-1.2); CREATININE, serum 1.72 mg/dL (0.57-1.11); POTASSIUM 4.3 mmol/L (3.5-4.5); TOTAL PROTEIN 5.2 gm/dL (6.2-8.1)
[2023-01-27 05:27] LABS: HEMATOCRIT 21.4 % (37.0-47.0); MEAN CORPUSCULAR HEMOGLOBIN 29 pg (27-31)
[2023-01-27 05:30] LABS: BAND 2 % (0-10); EOSINOPHIL 1 % (0-4); LYMPHOCYTE 6 % (20.0-51.0); NEUTROPHILS 80 % (42.0-75.2)
[2023-01-27 05:31] LABS: ANISOCYTOSIS 1+; PLATELET ESTIMATE DECREASED (NORMAL)
[2023-01-27 05:36] LABS: INR 1.2 (0.8-3.0); PROTHROMBIN TIME 13.9 SECONDS (9.7-12.8)
--- NOTE | 2023-01-27 07:25 | NUR ---
RECEIVED REPORT FROM [facility]. MEDICATIONS, ORDERS, AND LABS REVIEWED AND ACKNOWLEDGED.
--- NOTE | 2023-01-27 08:59 | NUR ---
HEAD TO TOE ASSESSMENT COMPLETED. IV SITES, DRIPS, ET/OG TUBES, AND VENTILATOR SETTINGS VERIFIED. PATIENT REPOSITIONED. LEVOPHED INCREASED AT THIS TIME D/T LOW BLOOD PRESSURE AND MAP. CALL LIGHT WITHIN REACH OF PATIENT.
--- NOTE | 2023-01-27 09:30 | NUR ---
Palliative Team meeting with patient's daughters, [id number] & son. Care team present - Dr. Kelly, Nadia Hoang RN, Faith & this author. Dr. Kelly discussed patient's current condition & multiple body systems involved. Minimal progress noted, continues on vasopressor support, wound culture results, GI bleed, cardiac function & current ventilator support. Discussed option to continue to be aggressive with additions therapies & diagnostic tests with plan to pursue trach/PEG early next week should ventilator support still be needed. Discussed other option of comfort care. Family stated that they had been discussing amongst themselves & knew patient would not want to have a trach or be dependent on others for ADLs. Family plan to pursue comfort measures tomorrow (Sunday 01/28) with withdrawal of ventilator. Will have additional family members in today to say goodbyes.
--- NOTE | 2023-01-27 11:12 | NUR ---
Family meeting held this morning with patient children and other family memebers. Also in attendance is Svp Chief Marketing Officer, hospitalist, ICU director Brenda, patients RN and myself. Patients condition spoke at length with the family. All family members verbalizes that the patient would not want to be on life support, have a trach and peg placed or be placed in any type of rehab/ nursing facility. Family memebers verbalize their agreement to move forward on withdrawing care and will most likely have the care team pull the vent on Sunday 01/28 after other family such as grandchildren arrive to say good bye.
--- NOTE | 2023-01-27 14:15 | NUR ---
Telehealth visit conducted with Dr. Sylvester Murphy, Infectious Disease. Patients nurse present to assist answer questions from Dr. Murphy. Blister Rust Eradicator initiated without any difficulties during exam. All questions were answered by Dr. Murphy.
--- NOTE | 2023-01-27 16:30 | NUR ---
HEAD TO TOE ASSESSMENT COMPLETED. LEG WOUNDS DRESSED BY WOUND CARE. PARKS, IV SITE, ET/OG TUBING, IV DRIPS, AND VENTILATOR SETTINGS ALL VERIFIED. PATIENT REPOSITIONED. FAMILY IN AND OUT OF PATIENT ROOM ALL AFTERNOON. MEDICATIONS, LABS, AND ORDERS ACKNOWLEDGED AND VERIFIED.
--- NOTE | 2023-01-27 16:40 | NUR ---
SEDATION VACATION NOT PREFORMED TO KEEP PATIENT COMOFRTABLE WHILE TRANSITIONING TO COMFORT CARE TOMORROW. NO CHANGES MADE TO SEDATION PER PROVIDERS ORDERS.
--- NOTE | 2023-01-27 19:15 | NUR ---
Received report from LEVY Jauregui, and LEVY Singh. Patient resting quietly in bed. Family at bedside. Patient remains on ventilator, tolerating well. Continues to receive fentanyl, propofol, and levophed drips, see IV drip titrations. Vitals within normal limits. She opens eyes to speech and follows verbal commands. Bed in lowest position, all alarms on.
[2023-01-28] VITALS (776 sets, daily range): BP systolic 77–110; BP diastolic 39–49; PULSE 80–91; TEMP 97.9–99; O2SAT 40–100
[2023-01-28 04:42] LABS: ARTERIAL BLD GAS O2 SATURATION 95.5 % (92-100); ARTERIAL BLD GAS TCO2 CT 21.5; ARTERIAL BLOOD GAS BASE EXCESS -3.4 (-2-2); ARTERIAL BLOOD GAS HCO3 20.5 meq/L (22-26); ARTERIAL BLOOD GAS PCO2 32.4 mmHg (35-45); ARTERIAL BLOOD GAS PO2 77.8 mmHg (80-100); ARTERIAL BLOOD GAS pH 7.42 (7.35-7.45)
[2023-01-28 06:01] LABS: MEAN CELL VOLUME 88 fl (80.0-100.0); MEAN CORPUSCULAR HGB CONC 33 g/dl (33.0-37.0); MEAN PLATELET VOLUME 11.6 fl (7.4-10.4); PLATELET COUNT 83 K/mm3 (130-400); RED BLOOD COUNT 2.36 M/mm3 (4.10-5.30); REDCELL DISTRIBUTION WIDTH-CV 17.2 % (11.5-14.5)
[2023-01-28 06:02] LABS: HEMATOCRIT 20.7 % (37.0-47.0); MEAN CORPUSCULAR HEMOGLOBIN 29 pg (27-31)
[2023-01-28 06:03] LABS: HEMOGLOBIN 6.9 g/dl (12.5-16.0)
--- NOTE | 2023-01-28 06:05 | NUR ---
NO SEDATION VACATION PERFORMED. POC TO PURSUE COMFORT CARE TODAY.
[2023-01-28 06:22] LABS: MAGNESIUM 2.1 mg/dL (1.6-2.6)
[2023-01-28 06:48] LABS: ANISOCYTOSIS 1+; BAND 6 % (0-10); EOSINOPHIL 2 % (0-4); HYPOCHROMIA 1+; LYMPHOCYTE 3 % (20.0-51.0); NEUTROPHILS 84 % (42.0-75.2); PLATELET ESTIMATE DECREASED (NORMAL)
[2023-01-28 06:50] LABS: TARGET CELLS 1+
[2023-01-28 07:27] LABS: CREATININE, serum 1.42 mg/dL (0.57-1.11); POTASSIUM 4.7 mmol/L (3.5-4.5)
--- NOTE | 2023-01-28 09:45 | NUR ---
Sedation and levophed stopped as patient will be extubated and go comfort care.
--- NOTE | 2023-01-28 10:05 | NUR ---
Patient to be extubated and go comfort care today. Family at bedside and denies needs.
--- NOTE | 2023-01-28 10:30 | NUR ---
Patient extubated at 0948 this morning; patient tolerated procedure well and was placed on comfort care.
--- NOTE | 2023-01-28 13:07 | NUR ---
Received report from LEVY Fox; patient currently on ventilator with fent and prop running for sedation through patient's right IJ central line. Patient has ET and OG in place, as well as Rothman catheter. Patient remains on levo and blood pressures are still slightly soft; all other vital signs are within normal limits this morning.
--- NOTE | 2023-01-28 17:55 | NUR ---
Patient at 1752; this nurse and LEVY Cuevas confirmed.
--- NOTE | 2023-01-28 18:41 | NUR ---
Called by staff that patient had . Call placed to [facility] @ 1820. After review of chart patient was determined to not be a candidate for donation due to Septic shock secondary to wounds to bilateral lower extremities. They forwarded information onto [facility] for Evaluation. Confirmation # [id number]. Family in room with patient and have offered and accepted a niall. Bramwellsunita Rodarte, notified of the need for her presence in the ICU. She will be on her way. Patient's family stated they would like [facility] in [place]. Will notify them when Bramwell has left and family is ready. Call placed to Fifi Lozano APRN office to make them aware of patients . Message left with their answering service. @ 1840 [facility] returned call. May release patient as she is not a canidate for donation.
--- NOTE | 2023-01-28 19:16 | NUR ---
[facility] notified that family has chosen them to be the Home. Home on way to roll picker patient
--- NOTE | 2023-01-28 19:33 | NUR ---
Photovoltaic Technician on-call: Received a phone call at 1828 that Photovoltaic Technician was requested in ICU 5 for the of the Patient. Arrived at the hospital at approximately 1900. Patient's Daughter Phylicia and [id number] Mechelle were present. Great-grandchildren were present, but were taken to go get a meal within a few minutes of Photovoltaic Technician's arrival. Son Neil came back into the room once the children had left. Photovoltaic Technician provided supportive listening; scripture reading from Nely Blanchard and Kavon Valles; and prayer. Photovoltaic Technician offered to assist with getting water or any other refreshments; Family declined. Photovoltaic Technician offered to sit with family until home arrives; family declined. Photovoltaic Technician spoke to RN before leaving ICU to say that Photovoltaic Technician will continue to remain available for Family if requested.
== END 2023-01-28 20:27 | disposition expired | DRG 870 ==
LOC: COL.ER 18:13 → ICU 19:40 → EDBEDREQSVC 21:06 → EDBEDREQ 21:06 → ICU 01-24 06:31
PROVIDERS: Family Medicine; Internal Medicine Gastroenterology; Internal Medicine Pulmonary Disease; Registered Nurse; Student in an Organized Health Care Education/Training Program; ADMIT Internal Medicine
PROC: 02HV33Z Insertion of Infusion Device into Superior Vena Cava, Percutaneous Approach (ICD-10-PCS; 2023-01-22)
PROC: 5A1955Z Respiratory Ventilation, Greater than 96 Consecutive Hours (ICD-10-PCS; principal; 2023-01-24)
PROC: 0BH17EZ Insertion of Endotracheal Airway into Trachea, Via Natural or Artificial Opening (ICD-10-PCS; 2023-01-24)
DX: A41.9 Sepsis, unspecified organism (principal); D59.30 Hemolytic-uremic syndrome, unspecified; G93.41 Metabolic encephalopathy; I21.A1 Myocardial infarction type 2; R65.21 Severe sepsis with septic shock; Z51.5 Encounter for palliative care; Z66 Do not resuscitate; J96.01 Acute respiratory failure with hypoxia; I48.20 Chronic atrial fibrillation, unspecified; E87.1 Hypo-osmolality and hyponatremia; N17.9 Acute kidney failure, unspecified; K92.1 Melena; A04.0 Enteropathogenic Escherichia coli infection; L03.311 Cellulitis of abdominal wall; A09 Infectious gastroenteritis and colitis, unspecified; J90 Pleural effusion, not elsewhere classified; E87.20 Acidosis, unspecified; L03.116 Cellulitis of left lower limb; L03.115 Cellulitis of right lower limb; I50.32 Chronic diastolic (congestive) heart failure; K21.9 Gastro-esophageal reflux disease without esophagitis; I08.1 Rheumatic disorders of both mitral and tricuspid valves; E78.5 Hyperlipidemia, unspecified; B95.61 Methicillin susceptible Staphylococcus aureus infection as the cause of diseases classified elsewhere; I95.9 Hypotension, unspecified; I27.20 Pulmonary hypertension, unspecified; D69.6 Thrombocytopenia, unspecified; D64.9 Anemia, unspecified; E66.9 Obesity, unspecified; I25.10 Atherosclerotic heart disease of native coronary artery without angina pectoris; I11.0 Hypertensive heart disease with heart failure; I87.2 Venous insufficiency (chronic) (peripheral); G47.33 Obstructive sleep apnea (adult) (pediatric); K29.70 Gastritis, unspecified, without bleeding; K76.1 Chronic passive congestion of liver; Z79.01 Long term (current) use of anticoagulants; Z95.2 Presence of prosthetic heart valve; Z87.891 Personal history of nicotine dependence; Z86.73 Personal history of transient ischemic attack (TIA), and cerebral infarction without residual deficits; Z95.818 Presence of other cardiac implants and grafts; Z68.37 Body mass index [BMI] 37.0-37.9, adult; Z23 Encounter for immunization
CPT/HCPCS: A4314; A6248; C9113; J0330; J0456; J0692; J1170; J1644; J2060; J2270; J2543; J2704; J2920; J3010; J3370; J7030; J7050; J7060